=== PATIENT | male | born 1995 | race Caucasian/White ===

== ENCOUNTER 2024-03-02 20:30 | Emergency (ER) | payer BC, SELFPAY ==
[2024-03-02] MEDS ORDERED: Bacitracin 1 PK ONE (21:09)
[2024-03-02] MEDS ORDERED: Boostrix 0.5 ML (Tdap) VIAL (>/=7 yrs of age) ONE (21:09)
== END 2024-03-02 21:20 | disposition home or self-care (01) ==
LOC: CSHERS 20:30
DX: S60.511A Abrasion of right hand, initial encounter (principal); W26.8XXA Contact with other sharp object(s), not elsewhere classified, initial encounter
CPT/HCPCS: 90471; 90715